=== PATIENT | male | born 1965 | race Caucasian/White ===

== ENCOUNTER 2019-05-24 21:36 | Emergency (ER) | payer SELFPAY ==
[~2019-05-24] VITALS: Ht 167.6 cm; Wt 86.4 kg
[2019-05-24 21:37] VITALS: BP 184/98; PULSE 81; RESP 18; Ht 167.6 cm; Wt 86.4 kg
== END 2019-05-25 00:36 | disposition left against medical advice (07) ==
LOC: E/R 21:36
DX: Z53.21 Procedure and treatment not carried out due to patient leaving prior to being seen by health care provider (principal)
CPT/HCPCS: 93005